=== PATIENT | female | born 1940 | race Caucasian/White ===

== ENCOUNTER 2018-02-05 10:12 | Observation (INO) | payer MEDICARE ==
[2018-02-05] MEDS: MORPHINE 4 MG/ML 1ML VIAL/SYRINGE (J2270) IV (10:45)
[2018-02-05 10:59] LABS: BASO # 0.1 10^3/uL (0.0-0.2); BASO % 0.9 % (0.0-1.0); EOS # 0.1 10^3/uL (0.0-0.50); EOS % 0.7 % (0.0-3.0); HEMATOCRIT 40.3 % (36.0-47.0); HEMOGLOBIN 13.2 g/dl (12.0-15.5); IMMATURE GRANULOCYTE % 0.3 % (0-3.0); LYMPH # 0.8 10^3/uL (1.5-4.5); LYMPH % 10.6 % (24.0-44.0); MEAN CORPUSCULAR HGB CONC 32.8 g/dl (32.0-36.5); MEAN CORPUSCULAR VOLUME 85.4 fl (80.0-96.0); MONO # 0.5 10^3/uL (0.0-0.8); NEUTROPHILS # 6.2 10^3/uL (1.8-7.7); NEUTROPHILS % 81.5 % (36.0-66.0); PLATELET COUNT, AUTOMATED 240 10^3/uL (150-450); RED BLOOD COUNT 4.72 10^6/uL (4.00-5.40); RED CELL DISTRIBUTION WIDTH 12.9 % (11.5-14.5); WHITE BLOOD COUNT 7.7 10^3/uL (4.0-10.0)
[2018-02-05 11:13] LABS: ANION GAP 8 MEQ/L (8-16); BLOOD UREA NITROGEN 13 MG/DL (7-18); CALCIUM LEVEL 8.3 MG/DL (8.8-10.2); CARBON DIOXIDE LEVEL 27 MEQ/L (21-32); CHLORIDE LEVEL 101 MEQ/L (98-107); CREATININE FOR GFR 0.67 MG/DL (0.55-1.30); GLOMERULAR FILTRATION RATE > 60.0 (>39); GLUCOSE, FASTING 133 MG/DL (70-100); POTASSIUM SERUM 4.1 MEQ/L (3.5-5.1); SODIUM LEVEL 136 MEQ/L (136-145)
[2018-02-05] MEDS: ceFAZolin SOD 1 GM in D5W MINI-BAG PLUS 50 ML IV (11:23)
[2018-02-05] MEDS: NS 1,000 ML IV ×2 (14:15→17:26)
[2018-02-05] MEDS ORDERED: SCOPOLAMINE 1MG TRANSDERMAL PATCH As Ordered (19:17)
[2018-02-05] MEDS: SCOPOLAMINE 1MG TRANSDERMAL PATCH TOP (19:25)
[2018-02-05] MEDS ORDERED: ROCURONIUM BROMIDE 50 MG/5 ML VIAL As Ordered (20:16)
[2018-02-05] MEDS ORDERED: MIDAZOLAM INJ 2 MG/2 ML VIAL (J2250) As Ordered (20:16)
[2018-02-05] MEDS ORDERED: LIDOCAINE 2% INJ 100 MG/5 ML SDV (FOR ANES.) As Ordered (20:16)
[2018-02-05] MEDS ORDERED: HYDROmorphone HCL 2 MG/ML 1ML VIAL (J1170) As Ordered (20:16)
[2018-02-05] MEDS ORDERED: ePHEDrine SULFATE 25 MG/5 ML(5MG/ML) SYRINGE As Ordered (20:16)
[2018-02-05] MEDS ORDERED: GLYCOPYRROLATE INJ 0.2 MG/ML 2 ML VIAL As Ordered ×2 (20:16)
[2018-02-05] MEDS ORDERED: PROPOFOL 200 MG/20 ML VIAL As Ordered (20:16)
[2018-02-05] MEDS ORDERED: dexameTHASONE 4 MG/ML 1ML VIAL (J1100) As Ordered (20:16)
[2018-02-05] MEDS ORDERED: NEOSTIGMINE 10 MG/10 ML VIAL (J2710) As Ordered (20:16)
[2018-02-05] MEDS ORDERED: ONDANSETRON 4MG/2ML VIAL (J2405) As Ordered ×2 (20:16→21:20)
[2018-02-05] MEDS ORDERED: fentaNYL 100 MCG/2 ML INJECTION (J3010) As Ordered (20:16)
[2018-02-05] MEDS: BUPIVACAINE/EPIN 0.5% 30 ML VIAL As Ordered (21:06)
[2018-02-05] MEDS ORDERED: METOCLOPRAMIDE INJ 10MG/2ML VIAL (J2765) As Ordered (21:30)
[2018-02-05] MEDS ORDERED: METOCLOPRAMIDE INJ 10MG/2ML VIAL (J2765) IV (21:45)
[2018-02-05] MEDS ORDERED: traMADol 50 MG TAB PO ×2 (21:45)
[2018-02-05] MEDS ORDERED: fentaNYL 100 MCG/2 ML INJECTION (J3010) IV (21:45)
[2018-02-05] MEDS ORDERED: ONDANSETRON 4MG/2ML VIAL (J2405) IV (21:45)
[2018-02-06] MEDS: ceFAZolin SOD 1 GM in D5W MINI-BAG PLUS 50 ML IV ×3 (03:30→20:22)
[2018-02-06] MEDS: ONDANSETRON 4MG/2ML VIAL (J2405) IV ×3 (04:10→10:09)
[2018-02-06] MEDS: ACETAMINOPHEN TAB 650MG DOSE (2X325MG) PO (04:11)
[2018-02-06] MEDS: IBUPROFEN 800 MG TAB PO ×4 (06:52→22:11)
[2018-02-06] MEDS: LR 1,000 ML IV (07:38)
[2018-02-07] MEDS: IBUPROFEN 800 MG TAB PO (06:28)
== END 2018-02-07 10:28 | disposition home or self-care (01) ==
LOC: M SDC 15:25 → M PED 15:26 → M ED 10:12 → M SDC 14:23 → M PED 16:59
DX: S52.91XA Unspecified fracture of right forearm, initial encounter for closed fracture (principal); W01.0XXA Fall on same level from slipping, tripping and stumbling without subsequent striking against object, initial encounter; Y92.410 Unspecified street and highway as the place of occurrence of the external cause; Y93.9 Activity, unspecified; Y99.9 Unspecified external cause status; Z88.2 Allergy status to sulfonamides
CPT/HCPCS: 11012